=== PATIENT | male | born 1960 | race African-American/Black ===

== ENCOUNTER 2019-09-12 08:08 | Emergency (ER) | payer SELFPAY ==
[~2019-09-12] VITALS: Ht 170.2 cm; Wt 90.0 kg
[2019-09-12] MEDS ORDERED: HYDROCODONE/ACETAMINOPHEN 5/325MG TABLET PO ONE (09:00)
[2019-09-12] MEDS ORDERED: TETANUS, DIPHTHERIA, PERTUSSIS VAC/PF 0.5ML (>7YR OLD) IM ONE (09:30)
[2019-09-12] MEDS ORDERED: BACITRACIN ZINC OINT UDPKT TOP ONE (09:30)
[2019-09-12] MEDS ORDERED: LIDOCAINE HCL/PF 1% 10 MG/ML 5ML VIAL IJ ONE (09:30)
[2019-09-12 11:15] VITALS: BP 168/81
== END 2019-09-12 12:16 | disposition home or self-care (01) ==
LOC: ER 08:08
DX: S62.637A Displaced fracture of distal phalanx of left little finger, initial encounter for closed fracture (principal); S61.307A Unspecified open wound of left little finger with damage to nail, initial encounter; F17.200 Nicotine dependence, unspecified, uncomplicated; W23.1XXA Caught, crushed, jammed, or pinched between stationary objects, initial encounter; Y93.9 Activity, unspecified; Y92.89 Other specified places as the place of occurrence of the external cause
CPT/HCPCS: 12001; 73140; 90471; 90715; 99283; J3490; Z7610

== ENCOUNTER 2021-02-06 15:10 | Emergency (ER) | payer SELFPAY ==
[~2021-02-06] VITALS: Ht 167.6 cm; Wt 94.7 kg
[2021-02-06] MEDS ORDERED: SODIUM CHLORIDE 0.9% 1,000 ML IV ONE (15:45)
[2021-02-06 15:50] LABS: CLARITY URINE CLEAR (CLEAR); COLOR URINE YELLOW (YELLOW); KETONES URINE NEGATIVE (NEGATIVE); LEUKOCYTE ESTERASE URINE NEGATIVE (NEGATIVE); NITRITE URINE NEGATIVE (NEGATIVE); OCCULT BLOOD URINE TRACE (NEGATIVE); PH URINE 6.5 (4.5-8.0); PROTEIN URINE NEGATIVE (NEGATIVE); SPECIFIC GRAVITY URINE 1.005 (1.005-1.030); UROBILINOGEN URINE 0.2 E.U./dL (0.2-1.0)
[2021-02-06 16:00] LABS: BASOPHILS % 0.6 % (0.0-2.0); EOSINOPHILS % 0.5 % (0.0-5.0); HEMATOCRIT. 48.3 % (42.0-52.0); HEMOGLOBIN. 16.3 g/dL (14.0-18.0); LYMPHOCYTES % 21.8 % (20.0-50.0); MEAN CORPUSCULAR VOLUME 91.8 fL (80.0-94.0); NEUTROPHILS % 69.1 % (40.0-76.0); PLATELET 253 x1000/uL (130-400); RED BLOOD CELL COUNT 5.26 mill/uL (4.7-6.1); RED CELL DISTRIBUTION WIDTH 14.1 % (11.6-14.6)
[2021-02-06 16:07] LABS: CHLORIDE 103 mEq/L (98-107)
[2021-02-06 16:11] LABS: INR 1.1; PROTHROMBIN TIME 11.4 sec (9.6-11.0)
[2021-02-06] MEDS ORDERED: AMLO2.5T2 MT (16:42)
[2021-02-06 17:09] VITALS: BP 162/97
== END 2021-02-06 17:11 | disposition home or self-care (01) ==
LOC: ER 15:10
DX: I16.1 Hypertensive emergency (principal); I10 Essential (primary) hypertension; R42 Dizziness and giddiness
CPT/HCPCS: 36415; 71045; 80053; 81003; 82962; 85025; 85610; 93005; 96360; 99285; J7030; 99284

== ENCOUNTER 2021-03-12 12:57 | Emergency (ER) | payer MEDICAID ==
[~2021-03-12] VITALS: Ht 165.1 cm; Wt 75.0 kg
[~2021-03-12 12:57] MED LIST: AMLO2.5T2 MT
[2021-03-12 13:03] VITALS: BP 164/84
[2021-03-12] MEDS ORDERED: AMLO2.5T45 MT (13:21)
== END 2021-03-12 13:30 | disposition home or self-care (01) ==
LOC: ER 12:57
DX: Z76.0 Encounter for issue of repeat prescription (principal); I10 Essential (primary) hypertension
CPT/HCPCS: 99281

== ENCOUNTER 2021-04-10 11:31 | Emergency (ER) | payer MEDICAID ==
[~2021-04-10] VITALS: Ht 170.2 cm; Wt 97.0 kg
[~2021-04-10 11:31] MED LIST changes: +AMLO2.5T45 MT
[2021-04-10] MEDS ORDERED: AMLO2.5T45 MT (12:22)
[2021-04-10 12:25] VITALS: BP 182/98
== END 2021-04-10 12:35 | disposition home or self-care (01) ==
LOC: ER 11:31
DX: I10 Essential (primary) hypertension (principal); Z98.890 Other specified postprocedural states; Z79.899 Other long term (current) drug therapy
CPT/HCPCS: 93005; 99283

== ENCOUNTER 2021-05-10 15:46 | Emergency (ER) | payer OTHER, MEDICAID ==
[~2021-05-10] VITALS: Ht 170.2 cm; Wt 101.0 kg
[2021-05-10] MEDS ORDERED: AMLO2.5T45 MT (16:30)
[2021-05-10] MEDS ORDERED: AMLODIPINE 2.5MG TABLET PO ONE (16:45)
[2021-05-10 16:54] VITALS: BP 163/78
== END 2021-05-10 16:55 | disposition home or self-care (01) ==
LOC: ER 15:46
DX: Z76.0 Encounter for issue of repeat prescription (principal); I10 Essential (primary) hypertension; Z79.899 Other long term (current) drug therapy
CPT/HCPCS: 99283

== ENCOUNTER 2021-06-10 13:24 | Emergency (ER) | payer MEDICAID, OTHER ==
[~2021-06-10] VITALS: Ht 170.2 cm; Wt 104.0 kg
[2021-06-10 13:35] VITALS: BP 147/122
[2021-06-10] MEDS ORDERED: AMLO2.5T2 MT (15:12)
== END 2021-06-10 15:19 | disposition home or self-care (01) ==
LOC: ER 13:37
DX: Z76.0 Encounter for issue of repeat prescription (principal); I10 Essential (primary) hypertension
CPT/HCPCS: 99281

== ENCOUNTER 2025-03-27 05:45 | Emergency (ER) | payer OTHER ==
[~2025-03-27] VITALS: Ht 170.2 cm; Wt 96.5 kg
[2025-03-27 05:57] VITALS: TEMP 36.9; O2SAT 100
[2025-03-27] MEDS: IBUPROFEN 400MG TABLET PO ONE (06:37)
[2025-03-27] MEDS ORDERED: IBUP-2028 PO (08:33)
[2025-03-27 09:25] VITALS: BP 152/62; PULSE 61; RESP 18; O2SAT 98
== END 2025-03-27 10:29 | disposition home or self-care (01) ==
LOC: ER 05:45
DX: S86.012A Strain of left Achilles tendon, initial encounter (principal); I10 Essential (primary) hypertension; Z79.899 Other long term (current) drug therapy; X58.XXXA Exposure to other specified factors, initial encounter; Y93.89 Activity, other specified; Y92.89 Other specified places as the place of occurrence of the external cause; Y99.8 Other external cause status
CPT/HCPCS: 73590; 73600; 93971; 99284